=== PATIENT | female | born 1985 | race Caucasian/White ===

== ENCOUNTER → 2024-04-04 13:33 | Outpatient (REF) | payer OTHER, SELFPAY | LOC: WDC 13:33 | PROVIDERS: ATTENDING PHYSICIAN Physician Assistant | DX: Z12.31 Encounter for screening mammogram for malignant neoplasm of breast (principal); R92.8 Other abnormal and inconclusive findings on diagnostic imaging of breast | CPT/HCPCS: 76642; 77063; 77067 ==

== ENCOUNTER 2024-08-22 08:31 | Emergency (ER) | payer SELFPAY ==
[2024-08-22 08:33] VITALS: BP 170/85
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
[2024-08-22 09:23] VITALS: BP 109/46
[2024-08-22 09:26] VITALS: BMI 49.5
[2024-08-22 10:55] VITALS: BP 110/49
== END 2024-08-22 10:56 | disposition home or self-care (01) ==
LOC: EMR 08:31
PROVIDERS: EMERGENCY PHYSICIAN Emergency Medicine; FAMILY PHYSICIAN Family Medicine
DX: R07.89 Other chest pain (principal); M25.531 Pain in right wrist; V40.0XXA Car driver injured in collision with pedestrian or animal in nontraffic accident, initial encounter; Y92.410 Unspecified street and highway as the place of occurrence of the external cause; I10 Essential (primary) hypertension; M45.9 Ankylosing spondylitis of unspecified sites in spine; E11.9 Type 2 diabetes mellitus without complications; Z88.8 Allergy status to other drugs, medicaments and biological substances; Z88.6 Allergy status to analgesic agent; Z88.1 Allergy status to other antibiotic agents; Z91.040 Latex allergy status
CPT/HCPCS: 99283; 71046; 93005

== ENCOUNTER → 2024-11-08 18:22 | Outpatient (REF) | payer OTHER, SELFPAY | LOC: MRI 18:22 | PROVIDERS: ATTENDING PHYSICIAN Nurse Practitioner Primary Care; FAMILY PHYSICIAN Family Medicine | DX: M46.1 Sacroiliitis, not elsewhere classified (principal) | CPT/HCPCS: 72197; A9575 ==

== ENCOUNTER → 2025-04-06 10:48 | Outpatient (REF) | payer BC, SELFPAY | LOC: WDC 10:48 | PROVIDERS: ATTENDING PHYSICIAN Obstetrics & Gynecology Gynecology | DX: Z12.31 Encounter for screening mammogram for malignant neoplasm of breast (principal) | CPT/HCPCS: 77063; 77067 ==

== ENCOUNTER 2025-10-04 15:45 | Emergency (ER) | payer BC, SELFPAY ==
[2025-10-04 15:55] VITALS: BP 171/103
[2025-10-04 18:23] VITALS: BP 166/86
[2025-10-04] MEDS: NSS 1000 IV (18:52)
[2025-10-04] MEDS: OFIRMEV 100 IV (18:53)
[2025-10-04 19:03] LABS: Hematocrit 40.7 % (37.0-47.0); Hemoglobin 13.3 g/dL (12.0-16.0); Mean Corp Hgb Conc. 32.7 g/dL (33.0-37.0); Mean Corpuscular Volume 86.6 fL (81.0-99.0); Nucleated Red Blood Cells % 0 %; Platelet Count 321 10^3/uL (130-400); Red Cell Dist. Width 13.2 % (11.5-14.5)
[2025-10-04 19:13] LABS: HCG, Serum Qualitative Screen Negative
--- NOTE | 2025-10-04 19:14 | ED.GENMED ---
History of Present Illness
<Amanda Combs PA-C - Last Filed: 10/05/25 19:10>
General
Chief Complaint: Ear Problem
Source: patient
Exam Limitations: none
Time Seen by Provider: 10/04/25 18:28
Nursing documentation reviewed up to this point in time: agreed with
History of Present Illness
History of Present Illness:
Patient is a 40-year-old female with history of migraines, hypertension who presents to the emergency department for evaluation of right ear pain. Patient states that she was diagnosed with influenza A earlier this week at urgent care. She
describes a few days of nasal congestion, sore throat, dry cough. She has also had nausea and vomiting with very limited p.o. intake. She was treated with Tamiflu and a short course of steroids by urgent care.
Patient states that she was planning to come to the emergency department this evening once her dad returned home from work as she was having persistent nausea and vomiting. However�around 4 PM she had acute onset pain in her right ear and intense
feeling of pressure. She has since had 'throbbing' pain deep in her right ear and feels that it is going to burst.
Patient states that she has been fever free for the past 48 hours. She denies any abdominal or back pain. No dysuria.
Past History
<Amanda Combs PA-C - Last Filed: 10/05/25 19:10>
Past History
ED Past Medical History: NIDDM, Other and Other
ED Past Surgical History: and Tonsilectomy
Social History
Tobacco: Non-smoker
Alcohol: Occasional
Drug: None
Personal: Single
Living: with family
Employment: Employed (Daycare instructor)
Review of Systems
<Amanda Combs PA-C - Last Filed: 10/05/25 19:10>
Review of Systems
Allergies reviewed?: Yes
All Other Systems: ROS reviewed and negative except as documented in HPI and ROS
Phy Exam
<Amanda Combs PA-C - Last Filed: 10/05/25 19:10>
Physical Exam
Physical Exam:
Vitals: Hypertensive, otherwise vital stable. Afebrile
General: Patient is noticeably uncomfortable due to pain.
Skin: Warm and dry, no rashes or lesions
Head: Normocephalic, atraumatic
Eyes: Sclera nonicteric. EOMs intact. No nystagmus.
Ears: Slight edema of right external auditory canal with visualized TM/landmarks and small blood clot at inferior aspect of TM. Left external auditory canal patent without significant erythema or swelling. TM visualized with clear landmarks.
Throat: Uvula midline. Protecting airway
Neck: Normal ROM, no cervical spine tenderness, no meningismus
Cardiac: Regular rate and rhythm, no murmurs.
Pulm: Normal respiratory effort. Lungs clear bilaterally. Infrequent cough
Abdomen: Abdomen soft. No areas of focal tenderness
Extremities: No evidence of cyanosis or edema
Neuro: AAOx3. Grossly intact
Psychiatric: Normal affect.
Course
<Amanda Combs PA-C - Last Filed: 10/05/25 19:10>
Orders/Labs/Results
Orders:
Orders
10/04/25 18:39
0.9% Sodium Chloride 1000 ml [Nss] 1,000 ml IV BOLUS
Acetaminophen 1000MG/100Ml [Ofirmev] 1,000 mg in 100 ml IV ONCE
Acetaminophen IV Indication:: ED Narcotic Naive Pt-ONCE
10/04/25 18:40
Test Result ONCE
10/04/25 18:53
Complete Blood Count/With Diff Urgent
Comprehensive Metabolic Panel Urgent
HCG, Serum Qualitative Screen Urgent
Lipase Urgent
Abnormal Lab Results
10/04/25
18:53
MCHC 32.7 L g/dL
(33.0-37.0)
Abs Immat Gran (auto) 0.1 H 10^3/uL
(0-0.05)
Immature Gran % 0.6 H %
(0-0.5)
10/04/25 18:53
10/04/25 18:53
Vital Signs
Initial and Last Documented VS:
Initial Vital Signs
Temp Pulse BP Pulse Ox
99.3 F 95 171/103 99
10/04/25 15:55 10/04/25 15:55 10/04/25 15:55 10/04/25 15:55
Last Documented Vital Signs
Temp Pulse Resp BP Pulse Ox
99.3 F 92 19 166/86 98
10/04/25 15:55 10/04/25 17:52 10/04/25 17:52 10/04/25 18:23 10/04/25 19:14
<Sung Alvarado MD - Last Filed: 10/04/25 22:14>
Orders/Labs/Results
Orders:
Orders
10/04/25 18:39
0.9% Sodium Chloride 1000 ml [Nss] 1,000 ml IV BOLUS
Acetaminophen 1000MG/100Ml [Ofirmev] 1,000 mg in 100 ml IV ONCE
Acetaminophen IV Indication:: ED Narcotic Naive Pt-ONCE
10/04/25 18:40
Test Result ONCE
10/04/25 18:53
Complete Blood Count/With Diff Urgent
Comprehensive Metabolic Panel Urgent
HCG, Serum Qualitative Screen Urgent
Lipase Urgent
Abnormal Lab Results
10/04/25
18:53
MCHC 32.7 L g/dL
(33.0-37.0)
Abs Immat Gran (auto) 0.1 H 10^3/uL
(0-0.05)
Immature Gran % 0.6 H %
(0-0.5)
10/04/25 18:53
10/04/25 18:53
Vital Signs
Initial and Last Documented VS:
Initial Vital Signs
Temp Pulse BP Pulse Ox
99.3 F 95 171/103 99
10/04/25 15:55 10/04/25 15:55 10/04/25 15:55 10/04/25 15:55
Last Documented Vital Signs
Temp Pulse Resp BP Pulse Ox
99.3 F 92 19 166/86 98
10/04/25 15:55 10/04/25 17:52 10/04/25 17:52 10/04/25 18:23 10/04/25 19:14
<Amanda Combs PA-C - Last Filed: 10/05/25 19:10>
MDM/Problems Addressed
Differential Diagnosis Includes:
Not limited to: viral illness, otitis media, otitis externa, serous otitis media, ruptured tympanic membrane, etc.
MDM/Problems Addressed:
40-year-old female diagnosed with influenza 4 days ago now with acute onset right ear pain this evening. No significant headache or neck pain. Fevers have resolved. She has had persistent nausea and limited p.o. intake for the past week. No
history of recent trauma. Vitals and physical exam as above.
Given history of poor p.o. intake over the past week, will check basic labs give IV fluids. Patient has multiple allergies. Will give a dose of IV Tylenol for her pain and reassess.
Update: Labs not acute abnormalities. No electrolyte derangements. Patient has had improvement in pain following IV Tylenol. Impression is viral illness with possible developing otitis externa. Will send prescription for topical antibiotics and
advised outpatient ENT follow-up. Her pain is much better controlled since arrival to ED and is comfortable with discharge home. Return precautions discussed.
Chronic conditions affecting care:
HTN
Acute Exacerbation and/or Progression of Chronic Illness:
Acutely hypertensive
<Amanda Combs PA-C - Last Filed: 10/05/25 19:10>
*Pulse Oximetry
SaO2: 98
Oxygen Mode of Delivery: Room air
Patient hypoxic: no
*EKG
Interpreted by ED Provider?: NA
*Technical Systems Architect Interpretation
Rate: Technical Systems Architect- N/A
*Critical Care Note
Total Time (30-74mins, 75-104mins- exclusive of procedures): Not Applicable
ED Attending Note
<Amanda Combs PA-C - Last Filed: 10/05/25 19:10>
-
Portions of this chart may have been created with voice recognition software.� Occasional wrong word or��sound alike� substitutions may have occurred due to the inherent limitations of voice recognition software.
<Sung Alvardao MD - Last Filed: 10/04/25 22:14>
ED Attending Note
Patient seen and examined by attending physician: Yes
ED Attending Note:
Patient diagnosed with influenza 5 days ago, presents to ED secondary to persistent nasal congestion, postnasal drip, intermittent cough, decreased appetite, body ache, along with increased right ear pain with decreased hearing over the past 2 days.
Denies diarrhea. Denies dizziness. Denies headache. Denies neck pain. Denies rash. Denies chest pain. Denies shortness of breath.
Physical Exam
General: mild painful distress, not acutely ill. afebrile.
Head: nc/at. eomi
Right TM: mild erythema noted along with dry blood clot along external canal
Neck: supple. no meningeal signs. normal posterior pharynx
Heart: s1/s2 regular rate and rhythm, no murmur
Lungs: no acute respiratory distress. clear bilaterally
Abdomen: normal bowel sounds. not tender.
Neuro: alert and oriented x 3. no focal neurological deficits
Skin: no rash
Psychiatric: well kept. interactive and cooperative
Extremities: no edema. no calf tenderness
History and exam consistent with likely viral syndrome, with right ear fullness sensation secondary to increased congestion. However, difficult to exclude potential otitis externa. As such, decision made to discharge patient home with antibiotic
ear drop, along with recommendation to follow-up with her ENT physician, Dr. Lopez, as outpatient next week. Otherwise, patient is afebrile, hemodynamically stable, and appears comfortable, at time of discharge, to the care of her family.
Discharge Plan
Departure
Patient Disposition: Home (Routine Discharge)
Date of Disposition: 10/04/25
Time of Disposition: 20:53
Patient with high blood pressure during this ER visit?: Yes
Discharge Problem:
Influenza A, Acute pain of right ear
Instructions: Flu in adults - ED (DC), BLOOD PRESSURE
Prescriptions:
New
ciprofloxacin-dexamethasone 0.3-0.1 % drops,suspension
4 drp otic (ear) BID 7 Days Qty: 7.5 0RF
No Action
meloxicam 15 mg Tablet
15 mg PO DAILY PRN (Reason: pain)
methotrexate sodium 2.5 mg Tablet
2.5 mg PO QWEEK
Rx Instructions:
8 pills every Tuesday
folic acid 1 mg Tablet
1 mg PO DAILY
medroxyprogesterone [Depo-Provera Contraceptive] 150 mg/mL Suspension
150 mg IM [id number]
Zyrtec 10 mg Capsule
10 mg PO HS
acetaminophen-codeine [acetaminophen-codeine] 300-30 mg tablet
1 - 2 tab PO Q4HPRN PRN (Reason: Mod-severe pain) Qty: 30 0RF
methylprednisolone [Medrol (Mansoor)] 4 mg tablets,dose pack
4 tab PO . DIRECT Qty: 1 0RF
Rx Instructions:
Start 12/06/2019
doxycycline hyclate 100 mg capsule
100 mg PO BID 7 Days Qty: 14 0RF
amoxicillin 500 mg capsule
500 mg PO TID Qty: 14 0RF
Referrals:
Ignacia Bee MD [Family Provider, Family Practice] - Follow up in 5-7 days
Cynthia Lopez MD [Active, Otology]
Stand Alone Forms: Return to Work
Activity Restrictions/Additional Instructions:
RETURN TO THE EMERGENCY DEPARTMENT WITH FEVER, SEVERE HEADACHE, SEVERE EAR PAIN, PRODUCTIVE COUGH, CHEST PAIN OR SHORTNESS OF BREATH, OR ANY OTHER CONCERNS
- Your lab work showed no acute abnormalities today in the emergency department.
- A prescription for topical eardrops have been sent to your pharmacy. Please apply twice a day to affected ear extremities. You continue to take Tylenol as needed for pain. It is important stay will
- Follow-up with ENT for further evaluation/management to ensure that your symptoms are improving
Monitor your symptoms closely and return to the emergency department with any acute worsening/new symptoms or any other concerns
Interventions
Interventions:
*Risk Screen - Suicide Last Done: 10/04/25 15:45
*General Assessment Last Done: 10/04/25 15:45
*Neglect/Abuse Screening Last Done: 10/04/25 15:45
*ED COVID-19 Vaccine History Last Done: 10/04/25 15:45
*ED Influenza Vaccine History Last Done: 10/04/25 15:45
[facility] Risk Assessment Tool Last Done: 10/04/25 18:06
*Nursing Disposition Last Done: 10/04/25 21:00
Discharge Date and Time
Discharge Date/Time: 10/04/25 21:00
Print Language: CHINESE
[2025-10-04 19:17] LABS: ALT (SGPT) 15 U/L (0-35); AST (SGOT) 20 U/L (14-36); Albumin 4.6 g/dl (3.5-5.0); Alkaline Phosphatase 66 U/L (38-126); Blood Urea Nitrogen 13 mg/dl (7-17); Calcium 9.3 mg/dl (8.4-10.2); Carbon Dioxide 26 mmol/L (22-30); Chloride 102 mmol/L (98-107); Glucose 99 mg/dl (70-99); Lipase 57 U/L (23-300); Potassium 3.6 mmol/L (3.5-5.1); Sodium 140 mmol/L (135-145); Total Protein 7.7 g/dl (6.3-8.2); eGFR > 60.00
== END 2025-10-04 21:00 | disposition home or self-care (01) ==
LOC: EMR 15:45
PROVIDERS: Physician Assistant; EMERGENCY PHYSICIAN Emergency Medicine; FAMILY PHYSICIAN Family Medicine
DX: J10.1 Influenza due to other identified influenza virus with other respiratory manifestations (principal); E11.9 Type 2 diabetes mellitus without complications; I10 Essential (primary) hypertension
CPT/HCPCS: 99284; 96374; 96361; 80053; 83690; 84703; 85025